=== PATIENT | female | born 1975 | race Caucasian/White ===

== ENCOUNTER 2017-06-30 19:10 | Emergency (ER) | payer OTHER ==
[2017-06-30 19:22] VITALS: BP 213/138
--- NOTE | 2017-06-30 20:15 | UC ---
General HPI - HPI Summary HPI Summary: Patient presents accompanied by her . She moved here from [place] about 7 months ago. Ran out of her blood pressure medication about 3 months ago and has not yet established with a primary care physician here. She used to take amlodipine 10 mg daily and is here requesting a refill of this medication. For the past week or so she has noticed her blood pressure has been elevated more than normal in the 160s over 90s to 100s. Today it was 163/110. She has had a headache for the past couple of days and describes some dizziness today. She denies chest pain, shortness of breath, nausea, visual disturbances. - History of Current Complaint Chief Complaint: UCGeneralIllness Stated Complaint: ELEVATED B/P Time Seen by Provider: 06/30/17 19:33 Hx Obtained From: Patient, Family/Graduate Assistant - Hx Last Menstrual Period: 07/01/17 Onset/Duration: Gradual Onset, Lasting Days, Still Present Onset Severity: Moderate Current Severity: Moderate Pain Intensity: 0 Associated Signs & Symptoms: Positive: Dizziness, Headache. Negative: Chest Pain, Diaphoresis, Fever, Nausea, Palpitations, SOB - Allergy/Home Medications Allergies/Adverse Reactions: Allergies Allergy/AdvReac Type Severity Reaction Status Date / Time Penicillins Allergy Unknown Verified 06/30/17 19:22 Reaction Details PMH/Surg Hx/FS Hx/Imm Hx Cardiovascular History: Hypertension - Surgical History Surgical History: None - Family History Known Family History: Positive: Hypertension - Social History Alcohol Use: None Substance Use Type: None Smoking Status (MU): Never Smoked Tobacco Review of Systems Constitutional: Negative Respiratory: Negative Cardiovascular: Negative Gastrointestinal: Negative Neurological: Headache, Other - dizzy All Other Systems Reviewed And Are Negative: Yes Physical Exam Triage Information Reviewed: Yes Appearance: Well-Appearing, No Pain Distress, Well-Nourished Vital Signs: Initial Vital Signs Temp 98.8 F 06/30/17 19:18 Pulse 116 06/30/17 19:18 Resp 16 06/30/17 19:18 BP 213/138 06/30/17 19:18 Pulse Ox 100 06/30/17 19:18 Vital Signs Reviewed: Yes Eyes: Positive: Conjunctiva Clear ENT: Positive: Hearing grossly normal Neck: Positive: Supple Respiratory Exam: Normal Cardiovascular: Positive: Tachycardia Abdomen Description: Positive: Soft Musculoskeletal: Positive: No Edema Neurological: Positive: Alert Psychological: Positive: Normal Response To Family, Age Appropriate Behavior Skin: Negative: rashes Diagnostics - EKG Cardiac Rate: NL - 99bpm Cardiac Rhythm: Sinus: Normal Ectopy: None ST Segment: Normal Course/Dx - Course Course Of Treatment: BP IS 213/138 AND PT DESCRIBES MACEDO AND DIZZINESS PAST 2 DAYS. PT DECLINES TRANSFER TO ED. ADVISED THAT SHE COULD BE RISKING WORSENING OF HER CONDITION THAT COULD POSE A THREAT TO HER LIFE, HEALTH AND MEDICAL SAFETY. SHE VERBALIZES UNDERSTANDING AND CONTINUES TO DECLINE TRANSFER. WILL REFILL AMLODIPINE AND GIVE CONTACT FOR PHYSICIAN REFERRAL CENTER. SIGNING OUT AMA. - Differential Dx - Multi-Symptom Provider Diagnoses: HYPERTENSIVE CRISIS Discharge - Sign-Out/Discharge Documenting (check all that apply): Discharge - Discharge Plan Condition: Stable Disposition: AGAINST MEDICAL ADVICE Prescriptions: Amlodipine Besylate [Norvasc] 10 mg PO DAILY #30 tablet Patient Education Materials: Hypertensive Crisis (ED) Referrals: No Primary Care Phys,NOPCP [Primary Care Provider] - Additional Instructions: YOU HAVE DECLINED TRANSFER TO THE ED TODAY WITH THE UNDERSTANDING THAT YOUR CONDITION MAY WORSEN LEADING TO RESPIRATORY DISTRESS/FAILURE, CARDIAC ARREST, /DISABILITY. CALL THE NUMBER BELOW FOR ASSISTANCE IN ESTABLISHING WITH A PCP An additional resource available to assist in finding the appropriate physician for your health care needs is the [facility] ([facility]). You may contact them by calling [phone]. - Billing Disposition and Condition Condition: STABLE Disposition: AMA
== END 2017-06-30 20:20 | disposition left against medical advice (07) ==
LOC: UCEAST 19:10
DX: I10 Essential (primary) hypertension (principal); Z88.0 Allergy status to penicillin
CPT/HCPCS: 93005; 99202; G0463

== ENCOUNTER 2017-07-01 10:00 | Emergency (ER) | payer OTHER ==
[2017-07-01] MEDS ORDERED: cloNIDine TAB* 0.1 MG PO ONE (10:32)
[2017-07-01 11:18] LABS: ABS Basophils 0 10^3/ul (0-0.2); ABS Eosinophils 0 10^3/ul (0-0.6); ABS Lymphocytes 0.8 10^3/ul (1.0-4.8); ABS Monocytes 0.4 10^3/ul (0-0.8); ABS Neutrophils 3.7 10^3/ul (1.5-7.7); ABS Nucleated RBC 0 10^3/ul; Eosinophil % 0.9 % (0-6); Hematocrit 45 % (35-47); Hemoglobin 15.2 g/dl (12.0-16.0); Lymphocyte % 16.2 % (25-47); Mean Corpuscular HGB Conc 34 g/dl (31-36); Mean Corpuscular Hemoglobin 31 pg (27-31); Mean Corpuscular Volume 93 fL (80-97); Mean Platelet Volume 8.3 um3 (7.4-10.4); Nucleated Red Blood Cells % 0; Platelet Count 252 10^3/ul (150-450); Red Blood Count 4.88 10^6/ul (4.0-5.4); Red Cell Distribution Width 14 % (10.5-15); White Blood Count 4.9 10^3/ul (3.5-10.8)
[2017-07-01 11:21] LABS: EGFR Non-African American 85.2 (>60)
[2017-07-01] MEDS ORDERED: amLODIPine TAB* 5 MG PO ONE (11:33)
[2017-07-01] MEDS ORDERED: Acetaminophen TAB* 325 MG PO ONE (12:21)
--- NOTE | 2017-07-01 12:42 | ED ---
Valeria Astudillo Edward, scribed for Garrick Jeff on 07/01/17 at 1012 . Hypertension - HPI Summary HPI Summary: 42 y/o female presents to the ED c/o high blood pressure earlier today. Pt checked her BP at home earlier today several times. Pt ran out of her blood pressure medication 2 months ago. PMHx HTN. Amlodipine 10 mg. Pt is currently asymptomatic. - History of Current Complaint Chief Complaint: EDHypertension Stated Complaint: HIGH BP Hx Obtained From: Patient Hx Last Menstrual Period: 07/01/17 Onset/Duration: Started Hours Ago Aggravating Factor(s): Nothing Alleviating Factor(s): Nothing Associated Signs & Symptoms: Negative - Allergies/Home Medications Allergies/Adverse Reactions: Allergies Allergy/AdvReac Type Severity Reaction Status Date / Time Penicillins Allergy Unknown Verified 06/30/17 19:22 Reaction Details Home Medications: Home Medications Magnesium Oxide TAB* [MagOx 400 TAB*] 400 mg PO DAILY 07/01/17 [History Confirmed 07/01/17] Multivitamins/Minerals TAB* [Theragran/minerals TAB*] 1 tab PO DAILY 07/01/17 [ History Confirmed 07/01/17] amLODIPine TAB* [Norvasc 5 mg TAB*] 5 mg PO BID 07/01/17 [History Confirmed ] PMH/Surg Hx/FS Hx/Imm Hx Previously Healthy: No Cardiovascular History: Reports: Hx Hypertension Opthamlomology History: Denies: Hx Legally Blind Infectious Disease History: No Infectious Disease History: Denies: Traveled Outside the [place] in Last 30 Days - Family History Known Family History: Positive: Hypertension - Social History Alcohol Use: None Hx Substance Use: No Substance Use Type: Reports: None Hx Tobacco Use: No Smoking Status (MU): Never Smoked Tobacco Review of Systems Constitutional: Negative Eyes: Negative ENT: Negative Cardiovascular: Negative Respiratory: Negative Gastrointestinal: Negative Genitourinary: Negative Musculoskeletal: Negative Skin: Negative Neurological: Negative Psychological: Normal All Other Systems Reviewed And Are Negative: Yes Physical Exam - Summary Physical Exam Summary: Appearance: Well appearing, no pain distress Skin: warm, dry, reflects adequate perfusion Head/face: normal Eyes: EOMI, TIN ENT: normal Neck: supple, non-tender Respiratory: CTA, breath sounds present Cardiovascular: RRR, pulses symmetrical Abdomen: non-tender, soft Bowel: present Musculoskeletal: normal, strength/ROM intact Neuro: normal, sensory motor intact, A&Ox3 Triage Information Reviewed: Yes Vital Signs On Initial Exam: Initial Vitals Temp Pulse Resp BP Pulse Ox 97.7 F 134 19 179/114 100 07/01/17 10:01 07/01/17 10:01 07/01/17 10:01 07/01/17 10:01 07/01/17 10:01 Vital Signs Reviewed: Yes Diagnostics - Vital Signs Vital Signs Temp Pulse Resp BP Pulse Ox 07/01/17 10:01 97.7 F 134 19 179/114 100 - Laboratory Lab Results: Lab Results 07/01/17 07/01/17 07/01/17 Range/Units 10:52 10:52 10:52 WBC 4.9 (3.5-10.8) 10^3/ul RBC 4.88 (4.0-5.4) 10^6/ul Hgb 15.2 (12.0-16.0) g/dl Hct 45 (35-47) % MCV 93 (80-97) fL MCH 31 (27-31) pg MCHC 34 (31-36) g/dl RDW 14 (10.5-15) % Plt Count 252 (150-450) 10^3/ul MPV 8.3 (7.4-10.4) um3 Neut % (Auto) 74.6 (38-83) % Lymph % (Auto) 16.2 L (25-47) % [place] % (Auto) 7.7 H (0-7) % Eos % (Auto) 0.9 (0-6) % Baso % (Auto) 0.6 (0-2) % Absolute Neuts (auto) 3.7 (1.5-7.7) 10^3/ul Absolute Lymphs (auto) 0.8 L (1.0-4.8) 10^3/ul Absolute Monos (auto) 0.4 (0-0.8) 10^3/ul Absolute Eos (auto) 0 (0-0.6) 10^3/ul Absolute Basos (auto) 0 (0-0.2) 10^3/ul Absolute Nucleated RBC 0 10^3/ul Nucleated RBC % 0 D-Dimer, Quantitative < 200 (Less Than 230) ng/mL Sodium 133 (133-145) mmol/L Potassium 3.9 (3.5-5.0) mmol/L Chloride 101 (101-111) mmol/L Carbon Dioxide 26 (22-32) mmol/L Anion Gap 6 (2-11) mmol/L BUN 9 (6-24) mg/dL Creatinine 0.75 (0.51-0.95) mg/dL Est GFR ( Amer) 109.5 (>60) Est GFR (Non-Af Amer) 85.2 (>60) BUN/Creatinine Ratio 12.0 (8-20) Glucose 132 H (70-100) mg/dL Calcium 9.9 (8.6-10.3) mg/dL Total Bilirubin 0.70 (0.2-1.0) mg/dL AST 21 (13-39) U/L ALT 23 (7-52) U/L Alkaline Phosphatase 41 (34-104) U/L Troponin I 0.00 (<0.04) ng/mL Total Protein 9.1 H (6.4-8.9) g/dL Albumin 4.8 (3.2-5.2) g/dL Globulin 4.3 H (2-4) g/dL Albumin/Globulin Ratio 1.1 (1-3) TSH 3.95 (0.34-5.60) mcIU/mL Beta HCG, Quant < 0.60 mIU/mL Result Diagrams: 07/01/17 10:52 07/01/17 10:52 Lab Statement: Any lab studies that have been ordered have been reviewed, and results considered in the medical decision making process. Re-Evaluation - Re-Evaluation 1 Re-Evaluation Time: 12:15 Change: Unchanged Comment: Reviewed bloodwork and test results Hypertension Course/Dx - Course Assessment/Plan: 42 y/o female presents to the ED, PMHx HTN. Pt reports high BP earlier today checked at home. Pt ran out of Amlodipine 10 mg 2 months ago. Blood work obtained. Pt will be d/c home with f/u with physician referral with rx Amlodipine. - Diagnoses Differential Diagnosis/HQI PQRI: Hypertension, Hypertensive Urgency Provider Diagnoses: Hypertension Discharge - Sign-Out/Discharge Documenting (check all that apply): Discharge - Discharge Plan Condition: Stable Disposition: HOME Prescriptions: amLODIPine TAB* [Norvasc 5 mg TAB*] 10 mg PO DAILY #30 tab Patient Education Materials: Hypertension (ED) [place]: [facility] [place]] - 4 Days (PLEASE F/U IN 3-5 DAYS) Additional Instructions: RETURN TO THE ED FOR CHANGING OR WORSENING OF SYMPTOMS - Billing Disposition and Condition Condition: STABLE Disposition: HOME The documentation as recorded by the Valeria kaminski Edward accurately reflects the service I personally performed and the decisions made by Tomer vega Emmanuel.
[2017-07-01 12:45] VITALS: BP 121/89
== END 2017-07-01 12:44 | disposition home or self-care (01) ==
LOC: ED 10:00
DX: I10 Essential (primary) hypertension (principal)
CPT/HCPCS: 36415; 80053; 84443; 84484; 84702; 85025; 85379; 99282; A9270-GY